=== PATIENT | male | born 1950 | race Two or more races ===

== ENCOUNTER 2024-09-04 09:51 | Emergency (ER) | payer OTHER, SELFPAY ==
[2024-09-04 10:03] VITALS: BP 111/87; PULSE 70; TEMP 36.4; O2SAT 99; BMI 28.3
--- NOTE | 2024-09-04 10:28 | ED.NAVMDI1 ---
HPI - Nausea/Vomiting/Diarrhea General Chief complaint: Nausea/Vomiting/Diarrhea Stated complaint: VOMITING Time Seen by Provider: 09/04/24 10:17 Mode of arrival: walk-in Limitations: no limitations History of Present Illness HPI Narrative: 74-year-old male presents for nausea and vomiting. It began yesterday and he has vomited several times. No diarrhea or hematemesis or fever. He has no abdominal pain. He has not had any known ill contacts. Related Data Home Medications ?Medication ?Instructions ?Recorded ?Confirmed apixaban 5 mg tablet (Eliquis) 5 mg PO BID 09/04/24 09/04/24 atorvastatin 20 mg tablet 20 mg PO DAILY 09/04/24 09/04/24 carvedilol 12.5 mg tablet 12.5 mg PO Q12H 09/04/24 09/04/24 hydrochlorothiazide 25 mg tablet 25 mg PO DAILY 09/04/24 09/04/24 losartan 100 mg tablet 100 mg PO DAILY 09/04/24 09/04/24 potassium chloride 10 mEq 10 meq PO DAILY 09/04/24 09/04/24 tablet,extended release (Klor-Con) tamsulosin 0.4 mg capsule (Flomax) 0.4 mg PO DAILY 09/04/24 09/04/24 Previous Rx's ?Medication ?Instructions ?Recorded ondansetron 4 mg disintegrating 4 mg PO Q6H PRN nausea and 09/04/24 tablet vomiting #20 tabs Allergies Allergy/AdvReac Type Severity Reaction Status Date / Time No Known Drug Allergies Allergy Verified 09/04/24 10:03 Review of Systems ROS Narrative A ten point review of systems is negative except as noted above. PFSH PFSH Social History Little interest or pleasure in doing things: not at all Feeling down, depressed, or hopeless: not at all Exam Narrative Exam Narrative: Nurses note and vital signs reviewed and patient is not hypoxic. General: The patient appears well and in no apparent distress. Patient is resting comfortably on cart. Skin: Warm, dry, no pallor noted. There is no rash noted. Head: Normocephalic, atraumatic Eye: Normal conjunctiva, no drainage Ears, Nose, Mouth, and Throat: oral mucosa is moist. Nares patent. Cardiovascular: Regular Rate and Rhythm Respiratory: Patient is in no distress, no accessory muscle use, lungs are clear to auscultation, no wheezing, rales or rhonchi Back: non-tender GI: Soft and nontender, nondistended Musculoskeletal: The patient has no evidence of calf tenderness, no pitting edema, symmetrical pulses noted bilaterally Neurological: A&O, normal speech Psychiatric: Cooperative Constitutional Vital Signs, click to edit/add: Last Vital Signs Temp 97.6 F 09/04/24 10:03 Pulse 68 09/04/24 11:36 Resp 18 09/04/24 11:36 BP 105/69 09/04/24 11:36 Pulse Ox 96 09/04/24 11:36 O2 Del Method Room Air 09/04/24 11:36 Course Vital Signs Vital signs: Vital Signs Temperature 97.6 F 09/04/24 10:03 Pulse Rate 70 09/04/24 10:03 Respiratory Rate 18 09/04/24 10:03 Blood Pressure 111/87 09/04/24 10:03 Pulse Oximetry 99 09/04/24 10:03 Oxygen Delivery Method Room Air 09/04/24 10:03 Temperature 97.6 F 09/04/24 10:03 Pulse Rate 68 09/04/24 11:36 Respiratory Rate 18 09/04/24 11:36 Blood Pressure 105/69 09/04/24 11:36 Pulse Oximetry 96 09/04/24 11:36 Oxygen Delivery Method Room Air 09/04/24 11:36 MDM - Nausea/Vomiting/Diarrhea MDM Narrative Medical decision making narrative: Blood work is essentially normal and he is feeling improved after IV fluids and IV Zofran. He is tolerating p.o. liquids and is able to be discharged home with a prescription for Zofran. Treatment diagnosis and follow-up were discussed with the patient. Differential Diagnosis Differential diagnosis: Likely food poisoning, gastroenteritis and dehydration Lab Data Attestation: I reviewed the patient's lab results. Labs: Lab Results 09/04/24 Range/Units 10:37 WBC 5.7 (4.0-11.0) 10^3/uL RBC 4.52 L (4.70-6.10) 10^6/uL Hgb 15.2 (14.0-18.0) g/dL Hct 43.2 (42.0-54.0) % MCV 95.6 H (80.0-94.0) fL MCH 33.6 (25.9-34.0) pg MCHC 35.2 (29.9-35.2) g/dL RDW 12.5 (11.0-15.0) % Plt Count 137 L (150-450) 10^3/uL MPV 8.2 L (9.5-13.5) fL Neut % (Auto) 85.3 H (43.0-75.0) % Lymph % (Auto) 6.2 L (20.5-60.0) % [place] % (Auto) 7.9 (1.7-12.0) % Eos % (Auto) 0.2 L (0.9-7.0) % Baso % (Auto) 0.2 (0.2-2.0) % Neut # (Auto) 4.8 (1.4-6.5) 10^3/uL Lymph # (Auto) 0.4 L (1.2-3.8) 10^3/uL [place] # (Auto) 0.5 (0.3-0.8) 10^3/uL Eos # (Auto) 0.0 (0.0-0.7) 10^3/uL Baso # (Auto) 0.0 (0.0-0.1) 10^3/uL Abs Immat Gran (auto) 0.01 (0.00-0.03) 10^3/uL Imm/Tot Granulo (auto) 0.2 (0.0-0.5) % Sodium 141 (136-145) mmol/L Potassium 3.8 (3.5-5.1) mmol/L Chloride 104 (98-107) mmol/L Carbon Dioxide 25.7 (21.0-32.0) mmol/L Anion Gap 15.1 BUN 22.0 H (7.0-18.0) mg/dL Creatinine 1.16 (0.70-1.30) mg/dL Est GFR ( Amer) >60 (>=60 mL/min/1.73m^2) Est GFR (Non-Af Amer) >60 (>=60 mL/min/1.73m^2) BUN/Creatinine Ratio 19.0 Glucose 125 H (74-106) mg/dL Calcium 8.9 (8.5-10.1) mg/dL Discharge Plan Discharge Chief Complaint: Nausea/Vomiting/Diarrhea Clinical Impression: Nausea and vomiting Patient Disposition: Home, Self-Care Time of Disposition Decision: 11:57 Condition: Good Mode of Transportation: Private Vehicle Prescriptions / Home Meds: New ondansetron 4 mg tablet,disintegrating 4 mg PO Q6H PRN (Reason: nausea and vomiting) Qty: 20 0RF No Action carvedilol 12.5 mg tablet 12.5 mg PO Q12H hydrochlorothiazide 25 mg tablet 25 mg PO DAILY potassium chloride [Klor-Con 10] 10 mEq tablet extended release 10 meq PO DAILY tamsulosin [Flomax] 0.4 mg capsule 0.4 mg PO DAILY Eliquis 5 mg tablet 5 mg PO BID losartan 100 mg tablet 100 mg PO DAILY atorvastatin 20 mg tablet 20 mg PO DAILY Print Language: [place] Instructions: Acute Nausea and Vomiting (ED) Referrals: ERNESTO LEE [Primary Care Provider] - 1 week
[2024-09-04 10:47] LABS: Basophils Percent Auto 0.2 % (0.2-2.0); Eosinophils Percent Auto 0.2 % (0.9-7.0); Hematocrit 43.2 % (42.0-54.0); Hemoglobin 15.2 g/dL (14.0-18.0); Immature Granulocytes Abs Auto 0.01 10^3/uL (0.00-0.03); Immature Granulocytes Pct Auto 0.2 % (0.0-0.5); Lymphocytes Absolute Auto 0.4 10^3/uL (1.2-3.8); Lymphocytes Percent Auto 6.2 % (20.5-60.0); Mean Corpuscular HGB Conc 35.2 g/dL (29.9-35.2); Mean Corpuscular Hemoglobin 33.6 pg (25.9-34.0); Mean Corpuscular Volume 95.6 fL (80.0-94.0); Mean Platelet Volume 8.2 fL (9.5-13.5); Monocytes Absolute Auto 0.5 10^3/uL (0.3-0.8); Monocytes Percent Auto 7.9 % (1.7-12.0); Neutrophils Absolute Auto 4.8 10^3/uL (1.4-6.5); Neutrophils Percent Auto 85.3 % (43.0-75.0); Platelet Count 137 10^3/uL (150-450); Red Blood Count 4.52 10^6/uL (4.70-6.10); Red Cell Distribution Width 12.5 % (11.0-15.0); White Blood Count 5.7 10^3/uL (4.0-11.0)
[2024-09-04 11:04] LABS: Anion Gap 15.1; Carbon Dioxide 25.7 mmol/L (21.0-32.0); Chloride 104 mmol/L (98-107); Estimated GFR (African America >60 (>=60 mL/min/1.73m^2); Glucose 125 mg/dL (74-106); Potassium 3.8 mmol/L (3.5-5.1); Sodium 141 mmol/L (136-145)
[2024-09-04 11:05] LABS: Calcium 8.9 mg/dL (8.5-10.1); Estimated GFR (Non-African Ame >60 (>=60 mL/min/1.73m^2)
[2024-09-04] MEDS: 0.9 % SODIUM CHLORIDE 1,000 ML 1000 ML IV (11:08)
[2024-09-04] MEDS: ONDANSETRON PF 4 MG/2 ML VIAL IV (11:08)
[2024-09-04 11:36] VITALS: BP 105/69; PULSE 68; O2SAT 96
--- NOTE | 2024-09-04 11:54 | PC.NURSE ---
Takes oral fluids with no abdominal pain nausea or vomiting.
== END 2024-09-04 12:07 | disposition home or self-care (01) ==
PROVIDERS: Emergency Provider Emergency Medicine; PCP Internal Medicine
DX: R11.2 Nausea with vomiting, unspecified (principal)
CPT/HCPCS: 36415; 80048; 85025; 96374; 99284; J2405